=== PATIENT | female | born 1975 | race Two or more races ===

== ENCOUNTER 2018-04-01 01:21 | Emergency (ER) | payer SELFPAY ==
--- NOTE | 2018-04-01 02:07 | ED Physician Chart ---
ED Chief Complaint/HPI - Patient Information Date Seen:: 04/01/18 Time Seen:: 02:02 Chief Complaint:: bilateral flank pains History of Present Illness:: 42 yr old female with bilateral flank pains with dysuria no hematuria no n,v,d no fever or cough Allergies:: Allergies Allergy/AdvReac Type Severity Reaction Status Date / Time MDX No Known Allergies - Nka Allergy Verified 06/05/15 21:30 [No Known Allergies - Nka] Vitals:: Vital Signs - 8 hr 04/01/18 01:40 Temp 97.7 F HR 87 RR 19 O2 Sat % 98 Historian:: Patient Family Medical History - Family Member Mother History Unknown: Yes ED Septic Shock - . Is Septic Shock (SBP<90, OR Lactate>4 mmol\L) present?: No - <6hrs of presentation: Vital Signs: Vital Signs - 8 hr 04/01/18 01:40 Temp 97.7 F HR 87 RR 19 O2 Sat % 98 ED Reassessment (Disposition) - Reassessment Reassessment Condition:: Improved - Patient Disposition Discharge/Transfer:: Home Condition at Disposition:: Improved
[2018-04-01 02:33] LABS: URINE MICROSCOPIC INDICATED? YES; URINE SOURCE RANDOM
[2018-04-01 02:39] LABS: % BASOPHILS 2.6 % (0.0-2.0); % EOSINOPHILS 1.3 % (0.0-5.0); % MONOCYTES 9.4 % (2.0-10.0); % NEUTROPHILS 64.7 % (40.0-80.0); BASOPHILE ABSOLUTE 0.2 Th/cumm (0-0.2); EOSINOPHILE ABSOLUTE 0.1 Th/cmm (0.1-0.4); HEMATOCRIT 32.5 % (41.0-60); HEMOGLOBIN 10.3 gm/dL (12-16); LYMPHOCYTE ABSOLUTE 1.5 Th/cmm (1.5-3.0); MEAN CELL VOLUME 72.2 fl (81-100); MEAN CORPUSCULAR HEMOGLOBIN 22.9 pg (27.0-31.0); MEAN CORPUSCULAR HGB CONC 31.8 pg (28.0-36.0); MONOCYTE ABSOLUTE 0.6 Th/cmm (0.3-1.0); NEUTROPHILE ABSOLUTE 4.2 Th/cmm (1.8-8.0); PLATELET COUNT 301 Th/cmm (150-400); RED CELL DISTRIBUTION WIDTH 18.8 % (11.5-20.0); WHITE BLOOD COUNT 6.6 Th/cmm (4.8-10.8)
[2018-04-01 02:39] LABS: URINE BILIRUBIN NEGATIVE (NEGATIVE); URINE BLOOD SMALL (NEGATIVE); URINE GLUCOSE (UA) NEGATIVE (NEGATIVE); URINE KETONE NEGATIVE (NEGATIVE); URINE LEUKOCYTE ESTERASE SMALL (NEGATIVE); URINE NITRATE NEGATIVE (NEGATIVE); URINE PROTEIN NEGATIVE (NEGATIVE); URINE UROBILINOGEN 0.2 E.U./dL (0.2 - 1.0)
[2018-04-01 02:52] LABS: ALB/GLOB RATIO 1.2 (1.0-1.8); ALBUMIN 4.2 gm/dL (3.7-5.3); ALKALINE PHOSPHATASE 83 U/L (34-104); ANION GAP 13.9 (7.0-16.0); BILIRUBIN,TOTAL 0.4 mg/dL (0.3-1.0); BUN - UREA NITROGEN 7 mg/dL (7-25); CARBON DIOXIDE 21.4 mEq/L (21.0-31.0); CHLORIDE 106 mEq/L (98-107); CREATININE - SERUM 0.5 mg/dL (0.6-1.2); GFR AFRICAN-AMERICAN > 60.0 ml/min (>90); GFR NON AFRICAN-AMERICAN > 60.0 ml/min; GLUCOSE 100 mg/dL (70-105); POTASSIUM SERUM 3.3 mEq/L (3.5-5.1); SGOT 114 U/L (13-39); SGPT/ALT 98 U/L (7-52); SODIUM SERUM 138 mEq/L (136-145); TOTAL PROTEIN,SERUM 7.6 gm/dL (6.0-8.3)
[2018-04-01 03:29] LABS: URINE COLOR YELLOW
[2018-04-01 03:32] LABS: URINE CLARITY CLEAR (CLEAR)
[2018-04-01 03:33] LABS: URINE BACTERIA NONE SEEN /hpf (NONE SEEN); URINE EPITHELIAL CELLS NONE SEEN /lpf (FEW); URINE RBC 0-2 /hpf (0-5)
[2018-04-01] MEDS ORDERED: Potassium Chloride 20 mEq ER Tab PO ONE ×2 (03:54→04:08)
== END 2018-04-01 03:56 | disposition home or self-care (01) ==
LOC: ER 01:21
DX: M54.5 Low back pain (principal)
CPT/HCPCS: 36415-UA; 80053-TC; 81001-TC; 81025-TC; 85025-TC; Z7502

== ENCOUNTER 2018-05-05 06:21 | Emergency (ER) | payer SELFPAY ==
[2018-05-05] MEDS ORDERED: Morphine Sulfate 4 mg/mL 1mL Syr IV STA (06:57)
[2018-05-05] MEDS ORDERED: Morphine Sulfate 4 mg/mL 1mL Syr ONE (07:00)
--- NOTE | 2018-05-05 07:03 | ED Physician Chart ---
ED Chief Complaint/HPI - Patient Information Date Seen:: 05/05/18 Time Seen:: 06:50 Chief Complaint:: abdominal pain History of Present Illness:: Patient developed left sided abdominal pain radiating to the left flank last night. She is nauseated but has had no vomiting or diarrhea. She does have dysuria. No history of similar pain Allergies:: Allergies Allergy/AdvReac Type Severity Reaction Status Date / Time No Known Allergies Allergy Verified 04/01/18 02:06 Vitals:: Vital Signs - 8 hr 05/05/18 06:34 Temp 97.8 F HR 62 RR 18 BP 137/71 O2 Sat % 99 Historian:: Patient Review:: Nurse's Note Reviewed <Christopher Whitfield - Last Filed: 05/05/18 06:58> - Patient Information Allergies:: Allergies Allergy/AdvReac Type Severity Reaction Status Date / Time No Known Allergies Allergy Verified 04/01/18 02:06 Vitals:: Vital Signs - 8 hr 05/05/18 05/05/18 06:34 07:16 Temp 97.8 F 98.2 F HR 62 59 RR 18 20 BP 137/71 O2 Sat % 99 100 <Nayana Duenas - Last Filed: 05/05/18 11:21> ED Review of Systems - Review of Systems General/Constitutional: No fever, No chills, No weight loss, No weakness, No diaphoresis, No edema, No loss of appetite Skin: No skin lesions, No rash, No bruising Head: No headache, No light-headedness Eyes: No loss of vision, No pain, No diplopia ENT: No earache, No nasal drainage, No sore throat, No tinnitus Neck: No neck pain, No swelling, No thyromegaly, No stiffness, No mass noted Cardio Vascular: No chest pain, No palpitations, No PND, No orthopnea, No edema Pulmonary: No SOB, No cough, No sputum, No wheezing GI: Nausea, No vomiting, No diarrhea, No pain, No melena, No hematochezia, No constipation, No hematemesis G/U: Dysuria, No frequency, No hematuria Musculoskeletal: No bone or joint pain, No back pain, No muscle pain Endocrine: No polyuria, No polydipsia Psychiatric: No prior psych history, No depression, No anxiety, No suicidal ideation Hematopoietic: No bruising, No lymphadenopathy Allergic/Immuno: No urticaria, No angioedema Neurological: No syncope, No focal symptoms, No weakness, No paresthesia, No headache, No seizure, No dizziness, No confusion, No vertigo <Christopher Whitfield - Last Filed: 05/05/18 06:58> ED Past Medical History - Past Medical History Past Medical History: No significant medical hx Family History: None Social History: Smoker, Alcohol, Other (smokes 1 cigarette a day; drinks one small bottle of vodka per day) Surgical History: other (left forearm for fracture) Psychiatricy History: None <Christopher Whitfield - Last Filed: 05/05/18 06:58> Family Medical History - Family Member Mother History Unknown: Yes <Christopher Whitfield - Last Filed: 05/05/18 06:58> ED Physical Exam - Physical Examination General/Constitutional: Awake, Well-developed, well-nourished, Alert, No distress, GCS 15, Non-toxic appearing, Ambulatory Head: Atraumatic Eyes: Lids, conjuctiva normal, PERRL, EOMI Skin: Nl inspection, No rash, No skin lesions, No ecchymosis, Well hydrated, No lymphadenopathy ENMT: External ears, nose nl, Nasal exam nl, Lips, teeth, gums nl Neck: Nontender, Full ROM w/o pain, No JVD, No nuchal rigidity, No bruit, No mass, No stridor Respiratory: Nl effort/Exclusion, Clear to Auscultation, No Wheeze/Rhonchi/Rales Cardio Vascular: RRR, No murmur, gallop, rubs, NL S1 S2 GI: No organomegaly, No hernia, Normal BS's, Nondistended, No mass/bruits, No McBurney tenderness Other GI comments:: Left upper quadrant tenderness : No CVA tenderness Extremities: No tenderness or effusion, Full ROM, normal strength in all extremities, No edema, Normal digits & nails Neuro/Psych: Alert/oriented, DTR's symmetric, Normal sensory exam, Normal motor strength, Judgement/insight normal, Mood normal, Normal gait, No focal deficits Misc: Normal back, No paraspinal tenderness <Christopher Whitfield - Last Filed: 05/05/18 06:58> ED Labs/Radiology/EKG Results - Lab Results Results: Laboratory Tests 05/05/18 05/05/18 05/05/18 06:55 06:55 06:55 WBC 6.6 RBC 4.38 Hgb 10.4 L Hct 32.0 L MCV 73.1 L MCH 23.8 L MCHC Differential 32.5 RDW 18.2 Plt Count 336 MPV 8.8 Neutrophils % 47.4 Lymphocytes % 33.6 Monocytes % 14.1 H Eosinophils % 3.1 Basophils % 1.8 Sodium 135 L Potassium 3.6 Chloride 103 Carbon Dioxide 24.5 Anion Gap 11.1 BUN 7 Creatinine 0.6 Est GFR ( Amer) > 60.0 Est GFR (Non-Af Amer) > 60.0 BUN/Creatinine Ratio 11.7 Glucose 100 Calcium 9.2 Magnesium 1.8 L Lipase 46 Urine Source RANDOM Urine Color YELLOW Urine Clarity CLEAR Urine pH 6.5 Ur Specific [place] 1.025 Urine Protein NEGATIVE Urine Glucose (UA) NEGATIVE Urine Ketones NEGATIVE Urine Blood MODERATE H Urine Nitrate NEGATIVE Urine Bilirubin NEGATIVE Urine Urobilinogen 0.2 Ur Leukocyte Esterase TRACE H Urine RBC 5-10 H Urine WBC 2-5 Ur Epithelial Cells MODERATE Urine Bacteria 1+ H Urine Test 05/05/18 06:55 WBC RBC Hgb Hct MCV MCH MCHC Differential RDW Plt Count MPV Neutrophils % Lymphocytes % Monocytes % Eosinophils % Basophils % Sodium Potassium Chloride Carbon Dioxide Anion Gap BUN Creatinine Est GFR ( Amer) Est GFR (Non-Af Amer) BUN/Creatinine Ratio Glucose Calcium Magnesium Lipase Urine Source Urine Color Urine Clarity Urine pH Ur Specific [place] Urine Protein Urine Glucose (UA) Urine Ketones Urine Blood Urine Nitrate Urine Bilirubin Urine Urobilinogen Ur Leukocyte Esterase Urine RBC Urine WBC Ur Epithelial Cells Urine Bacteria Urine Test NEGATIVE - Radiology Results Results: CT abdomen/pelvis wo contrast: left side 3mm ureteric stone without hydronephrosis. Left 3cm ovarian cyst. <Nayana Duenas - Last Filed: 05/05/18 11:21> ED Assessment - Assessment General Assessment: Differential diagnosis is pancreatitis or left ureteral calculus. Patient signed out to Dr. Duenas at 0700. <Christopher Whitfield - Last Filed: 05/05/18 06:58> - Assessment Assessment/Comments:: CT abdomen/pelvis wo contrast Rocephin 1gm IV NS 1L IV bolus x 2 Toradol 30mg IV D/c home Ciprofloxacin 500mg BID x 14 days Tamsulosin 0.4mg QD x 30 days F/u PCP/urologist within 7 days <Nayana Duenas - Last Filed: 05/05/18 11:21> ED Septic Shock - <6hrs of presentation: Vital Signs: Vital Signs - 8 hr 05/05/18 06:34 Temp 97.8 F HR 62 RR 18 BP 137/71 O2 Sat % 99 <Christopher Whitfield - Last Filed: 05/05/18 06:58> - . Is Septic Shock (SBP<90, OR Lactate>4 mmol\L) present?: No - <6hrs of presentation: Vital Signs: Vital Signs - 8 hr 05/05/18 05/05/18 06:34 07:16 Temp 97.8 F 98.2 F HR 62 59 RR 18 20 BP 137/71 O2 Sat % 99 100 <Nayana Duenas - Last Filed: 05/05/18 11:21> ED Reassessment (Disposition) - Reassessment Reassessment:: Renal colic secondary to non-obstructive ureteric calculi on the left side Urinary tract infection Microcytic anemia likely due to heavy menstrual period Hyponatremia Reassessment Condition:: Improved - Aftercare/Follow up Instructions Medication Prescribed:: Ciprofloxacin 500mg BID x 14 days Tamsulosin 0.4mg QD x 30 days - Patient Disposition Discharge/Transfer:: Home <Nayana Duenas - Last Filed: 05/05/18 11:21>
[2018-05-05 07:20] LABS: % BASOPHILS 1.8 % (0.0-2.0); % EOSINOPHILS 3.1 % (0.0-5.0); % LYMPHOCYTES 33.6 % (20.0-50.0); % MONOCYTES 14.1 % (2.0-10.0); % NEUTROPHILS 47.4 % (40.0-80.0); BASOPHILE ABSOLUTE 0.1 Th/cumm (0-0.2); EOSINOPHILE ABSOLUTE 0.2 Th/cmm (0.1-0.4); HEMOGLOBIN 10.4 gm/dL (12-16); LYMPHOCYTE ABSOLUTE 2.2 Th/cmm (1.5-3.0); MEAN CELL VOLUME 73.1 fl (81-100); MEAN CORPUSCULAR HEMOGLOBIN 23.8 pg (27.0-31.0); MEAN CORPUSCULAR HGB CONC 32.5 pg (28.0-36.0); MEAN PLATELET VOLUME 8.8 fl; MONOCYTE ABSOLUTE 0.9 Th/cmm (0.3-1.0); NEUTROPHILE ABSOLUTE 3.2 Th/cmm (1.8-8.0); PLATELET COUNT 336 Th/cmm (150-400); RED BLOOD COUNT 4.38 Mil/cmm (3.80-5.10); RED CELL DISTRIBUTION WIDTH 18.2 % (11.5-20.0); WHITE BLOOD COUNT 6.6 Th/cmm (4.8-10.8)
[2018-05-05 07:22] LABS: URINE BILIRUBIN NEGATIVE (NEGATIVE); URINE BLOOD MODERATE (NEGATIVE); URINE GLUCOSE (UA) NEGATIVE (NEGATIVE); URINE KETONE NEGATIVE (NEGATIVE); URINE LEUKOCYTE ESTERASE TRACE (NEGATIVE); URINE MICROSCOPIC INDICATED? YES; URINE NITRATE NEGATIVE (NEGATIVE); URINE PH 6.5 (4.6 - 8.0); URINE PROTEIN NEGATIVE (NEGATIVE); URINE SOURCE RANDOM; URINE UROBILINOGEN 0.2 E.U./dL (0.2 - 1.0)
[2018-05-05 07:33] LABS: URINE CLARITY CLEAR (CLEAR); URINE COLOR YELLOW
[2018-05-05 07:34] LABS: URINE BACTERIA 1+ /hpf (NONE SEEN); URINE EPITHELIAL CELLS MODERATE /lpf (FEW)
[2018-05-05 07:36] LABS: ANION GAP 11.1 (7.0-16.0); BUN - UREA NITROGEN 7 mg/dL (7-25); CALCIUM SERUM 9.2 mg/dL (8.6-10.3); CARBON DIOXIDE 24.5 mEq/L (21.0-31.0); CHLORIDE 103 mEq/L (98-107); CREATININE - SERUM 0.6 mg/dL (0.6-1.2); GFR AFRICAN-AMERICAN > 60.0 ml/min (>90); GFR NON AFRICAN-AMERICAN > 60.0 ml/min; GLUCOSE 100 mg/dL (70-105); LIPASE 46 U/L (11-82); MAGNESIUM 1.8 mg/dL (1.9-2.7); POTASSIUM SERUM 3.6 mEq/L (3.5-5.1); SODIUM SERUM 135 mEq/L (136-145)
[2018-05-05] MEDS ORDERED: cefTRIAXone 1 GM in Sodium Chloride 0.9% 50 ML IV ONE (07:47)
[2018-05-05] MEDS ORDERED: Sodium Chloride 0.9% 1,000 ML IV ONE ×2 (07:47→09:50)
[2018-05-05] MEDS ORDERED: Potassium Chloride 20 mEq ER Tab PO ONE ×2 (09:51→10:05)
--- NOTE | 2018-05-05 10:24 | Diagnostic Imaging Report ---
CT scan abdomen and pelvis without intravenous contrast HISTORY: Pain Total DLP equals 481 CTDI equals 10.2 Axial sections were obtained from the xiphoid process down to the pubic symphysis. The liver demonstrates a marked decrease in overall parenchymal density. Findings are consistent with fatty infiltration. The changes should be correlated with liver function tests. No focal lesions. The spleen appears normal. No abnormality seen in the region of the pancreas. No focal renal lesions. No calculi. No hydronephrosis. The exam of the pelvis demonstrates preservation of normal fat planes. No abnormal soft tissue masses or abnormal fluid collections. No abnormality seen in the region of the appendix. Mildly distended stool-filled ascending colon noted. IMPRESSION: 1. Findings consistent with hepatic fatty infiltration. The changes should be correlated with liver function tests 2. Mildly distended stool-filled ascending colon 3. No other acute abnormalities
== END 2018-05-05 11:35 | disposition home or self-care (01) ==
LOC: ER 06:21
DX: N20.2 Calculus of kidney with calculus of ureter (principal); N39.0 Urinary tract infection, site not specified; D50.9 Iron deficiency anemia, unspecified; E87.1 Hypo-osmolality and hyponatremia; F17.210 Nicotine dependence, cigarettes, uncomplicated
CPT/HCPCS: 99285; 96365; 96375; 74176; 36415; 85025; 87086; 81001; 81025; 83690; 83735; 80048; J1885; J2405; J0696; J7030